=== PATIENT | male | born 1975 | race Caucasian/White ===

== ENCOUNTER → 2020-05-17 | Outpatient (CLI) | payer OTHER ==
--- NOTE | 2020-05-17 18:06 | Diagnostic Imaging Report ---
PROCEDURE: CT sinuses without contrast TECHNIQUE: Multiple contiguous axial images were obtained through the sinuses without the use of intravenous contrast. Coronal and sagittal reformations were then performed. Auto Exposure Controls were utilized during the CT exam to meet ALARA standards for radiation dose reduction. DATE: May 17, 2020. INDICATION: 44-year-old male, chronic right-sided nasal blockage and deviation. COMPARISON: None. FINDINGS: There are bilateral nasal bone deformities which may relate to remote prior fractures. There is no adjacent soft tissue swelling. The bony nasal septum is deviated to the left of midline. There is opacification and areas of bubbly lucency within the right nasal cavity inferiorly. The bilateral maxillary sinuses, sphenoid sinuses, ethmoidal air cells and frontal sinuses are well aerated. The bilateral sphenoethmoidal recesses are patent. The bilateral ostiomeatal units are patent. The visualized portions of the paranasal sinuses and mastoid air cells are well-aerated. There is pneumatization of the petrous apices. IMPRESSION: 1. Deformity of the nasal bones which may relate to prior nasal bone fractures. The bony nasal septum is deviated to the left of midline. 2. Nonspecific opacification and areas of bubbly lucency within the right nasal cavity. 3. No evidence of acute or chronic sinusitis. Dictated by: Dictated on workstation # [id number]
== END ==
LOC: RAD FS 15:18
PROVIDERS: ATTEND Otolaryngology Otolaryngology/Facial Plastic Surgery
DX: J34.2 Deviated nasal septum (principal); J34.89 Other specified disorders of nose and nasal sinuses
CPT/HCPCS: 70486

== ENCOUNTER → 2020-09-23 | Outpatient (CLI) | payer SELFPAY ==
--- NOTE | 2020-09-23 19:40 | Diagnostic Imaging Report ---
CT coronary calcium scoring. INDICATION: Family history of coronary artery disease. TECHNIQUE: High-resolution CT imaging was obtained through the chest with particular attention paid to the coronary arteries. The presence and extent of coronary calcifications was analyzed with coronary calcium quantification software. All CT scans use one or more of the following dose optimizing techniques: automated exposure control, MA and/or KvP adjustment based on a patient size and exam type, or iterative reconstruction.. FINDINGS: There are no visible coronary calcifications evident on the CT images. The computer generated analysis demonstrates a total coronary Agatston score of 0. The thoracic aorta is normal in caliber without evidence of aneurysmal dilation. The main pulmonary arteries are normal in size. Heart size is normal. There is no pericardial collection. There are no findings of mediastinal adenopathy. The visualized portions of the lungs are clear without infiltrate or effusion. No pulmonary nodule or mass evident. There are no suspicious osseous lesions. IMPRESSION: 1. No identifiable coronary calcifications. The patient's total coronary Agatston score is 0. 2. The visualized portions of the lungs are clear. Dictated by: Dictated on workstation # [id number]
== END ==
LOC: RAD FS 15:47
PROVIDERS: ATTEND Nurse Practitioner Family
DX: Z82.49 Family history of ischemic heart disease and other diseases of the circulatory system (principal)
CPT/HCPCS: 75571

== ENCOUNTER → 2021-02-21 | Outpatient (CLI) | payer OTHER | LOC: LAB 10:51 | PROVIDERS: ATTEND Obstetrics & Gynecology | DX: N46.9 Male infertility, unspecified (principal) | CPT/HCPCS: 89320 ==

== ENCOUNTER → 2021-12-29 | Outpatient (CLI) | payer OTHER ==
--- NOTE | 2021-12-29 17:03 | Diagnostic Imaging Report ---
PROCEDURE: CT abdomen without contrast. TECHNIQUE: Multiple contiguous axial images were obtained through the abdomen without the use of intravenous contrast. Auto Exposure Controls were utilized during the CT exam to meet ALARA standards for radiation dose reduction. INDICATION: Injury with right upper quadrant pain. FINDINGS: The lung bases are clear. No basilar pleural fluid or pneumothorax. The visualized rib segments intact. There is no abdominal free fluid. Unopacified liver parenchyma. Nonfocal no subcapsular or perihepatic hemorrhage. Biliary ducts nondilated. The spleen, adrenals, pancreas, gallbladder and kidneys normal. The aorta is nonaneurysmal. There is no mesenteric or bowel wall hematoma. The appendix partially visualized and normal. The abdominal wall appeared intact. The bony structures unremarkable. IMPRESSION: Normal noncontrasted CT abdomen . Dictated by: Dictated on workstation # [id number]
== END ==
LOC: RAD FS 14:52
PROVIDERS: ATTEND Nurse Practitioner Family
DX: S30.1XXA Contusion of abdominal wall, initial encounter (principal); R10.31 Right lower quadrant pain; S39.91XA Unspecified injury of abdomen, initial encounter; X58.XXXA Exposure to other specified factors, initial encounter
CPT/HCPCS: 74150

== ENCOUNTER 2022-07-29 05:36 | Outpatient (CLI) | payer OTHER ==
[~2022-07-29] VITALS: Ht 193 cm; Wt 123.4 kg
== END 2022-07-29 10:54 | disposition home or self-care (01) ==
LOC: PREOP 05:36
PROVIDERS: ATTEND Surgery
DX: Z01.818 Encounter for other preprocedural examination (principal)

== ENCOUNTER 2022-08-11 07:27 | Day surgery (SDC) | payer OTHER ==
[~2022-08-11] VITALS: Ht 193 cm; Wt 123.4 kg
[2022-08-11] MEDS ORDERED: LACTATED RINGERS 1,000 ML IV STA (07:45)
[2022-08-11 07:56] VITALS: BP 128/87
[2022-08-11] MEDS ORDERED: PROPOFOL INJECTION 50 ML IV ONE (08:17)
--- NOTE | 2022-08-11 08:17 | Progress Note-Pre Operative ---
Pre-Operative Progress Note Date of Available H&P: Jul 20, 2022 Date H&P Reviewed: Aug 11, 2022 Time H&P Reviewed: 08:17 History & Physical: H&P Reviewed, Patient Examed, No changes noted Pre-Operative Diagnosis: painless rectal bleeding NGOZI WOODALL DO Aug 11, 2022 08:17
[2022-08-11] MEDS ORDERED: MIDAZOLAM 2 MG/2 ML (VERSED) VIAL ONE (08:29)
--- NOTE | 2022-08-11 08:54 | Discharge Inst-Simple/Standard ---
Discharge Inst-Standard Patient Instructions/Follow Up Plan of Care/Instructions/FU: Mendy in 10 years, any return of symptoms be seen at that time. If family history of colon cancer repeat in 5 years. Activity as Tolerated: Yes Discharge Diet: Regular Diet (high fiber) NGOZI WOODALL DO Aug 11, 2022 08:54
[2022-08-11 09:00] VITALS: BP 120/73
[2022-08-11 09:05] VITALS: BP 118/74
[2022-08-11 09:25] VITALS: BP 110/86
--- NOTE | 2022-08-11 17:08 | OPERATIVE REPORT ---
DATE OF SERVICE: 08/11/2022 PREOPERATIVE DIAGNOSIS: Painless rectal bleeding. POSTOPERATIVE DIAGNOSES: Diverticulosis, internal hemorrhoids. PROCEDURE: Colonoscopy. SURGEON: Ngozi Brooke DO ANESTHESIA: Per [employer]. ESTIMATED BLOOD LOSS: None. COMPLICATIONS: None. INDICATIONS: The patient is a 46-year-old male with an episode of painless rectal bleeding. He understands risks and benefits of the procedure and wishes to proceed. Consent was signed and on chart. DESCRIPTION OF PROCEDURE: The patient was taken to endoscopy suite, placed in left lateral semi-recumbent position. A timeout was performed. Digital rectal exam was performed noting some internal hemorrhoids. No palpable polyps, masses or ulcerations. Scope was inserted in the rectum, all the way to the cecum with minimal difficulty. Prep was adequate. Scope was slowly retracted back. No polyps, masses, ulcerations in the cecum, ascending, transverse, descending and sigmoid colon. In the sigmoid colon, minimal amount of diverticulosis present. Scope was then slowly retracted back to the rectum where it was also retroflexed noting some internal hemorrhoids. The scope was returned to its normal position and slowly withdrawn until completely removed. The patient tolerated the procedure well with no complications, taken to recovery room in stable condition. RECOMMENDATIONS: The patient will need repeat colonoscopy in 10 years unless family history of colon cancer, which would then be 5 years. Any return of symptoms or further bleeding, he should be reevaluated at that time. Job ID: [id number] DocumentID: [id number] Dictated Date: 08/11/2022 08:56:31 Poultry Hanger Date: 08/11/2022 17:05:00 Dictated By: NGOZI BROOKE DO
--- NOTE | 2022-08-11 17:51 | Anesthesia-General Post-Op ---
MAC Patient Condition Mental Status/LOC: Same as Preop Cardiovascular: Satisfactory Nausea/Vomiting: Absent Respiratory: Satisfactory Pain: Controlled Complications: Absent Post Op Complications Complications None Follow Up Care/Instructions Patient Instructions None needed. Anesthesiology Discharge Order Discharge Order Patient is doing well, no complaints, stable vital signs, no apparent adverse anesthesia problems. No complications reported per nursing. JUAN PABLO CODY CRNA Aug 11, 2022 17:51
== END 2022-08-11 09:31 | disposition home or self-care (01) ==
LOC: ENDO 07:27
PROVIDERS: ATTEND Surgery
DX: K57.31 Diverticulosis of large intestine without perforation or abscess with bleeding (principal); K64.8 Other hemorrhoids; Z28.310 Unvaccinated for COVID-19